=== PATIENT | female | born 2000 | race Caucasian/White ===

== ENCOUNTER 2022-09-22 12:08 | Day surgery (SDC) | payer BC ==
[2022-09-21 16:39] VITALS: BMI 18.6
[2022-09-21 16:50] LABS: Mean Corpuscular HGB CONC 33.3 g/dL (32.0-36.0); Mean Corpuscular Volume 96.3 fl (81.6-98.3); Mean Platelet Volume 10.2 fl (7.4-10.4); Platelet Count 247 10x3/uL (150-450); RBC Distribution Width 12.6 % (11.5-14.5); Red Blood Cell (RBC) Count 4.37 10x6/uL (3.90-5.03)
[2022-09-21 17:02] LABS: BHCG - Serum Negative (NEGATIVE); Pregs Control Background? CLEAR/WHITE (CLR/WHITE); Pregs Control Bar Appear? YES (CONTROL BAR)
[2022-09-22] MEDS ORDERED: Gabapentin 300 MG CAP ONE (12:17)
[2022-09-22] MEDS ORDERED: CeleCOXIB 100 MG CAP ONE (12:18)
[2022-09-22] MEDS ORDERED: Famotidine/PF 20 mg/2ml Vial ONE (12:19)
[2022-09-22] MEDS ORDERED: Midazolam HCl 2 mg/2 ml Vial ONE ×2 (13:40→15:32)
[2022-09-22] MEDS ORDERED: Bupivacaine HCl 0.5%/Epinephrine 1:200,000/PF 30 ml Vial ONE (13:40)
[2022-09-22] MEDS ORDERED: Dexamethasone 20 MG/5 ML VIAL ONE (13:43)
[2022-09-22] MEDS ORDERED: Fentanyl 100 MCG/2 ML VIAL ONE (13:43)
[2022-09-22] MEDS ORDERED: Ketorolac Tromethamine 30 MG/ML VIAL ONE (13:43)
[2022-09-22] MEDS ORDERED: PROPOFOL 20 ML ONE (13:43)
[2022-09-22] MEDS ORDERED: Glycopyrrolate 0.2 MG/ML 5 ML SYRINGE ONE (13:43)
[2022-09-22] MEDS ORDERED: Ondansetron PF 4 MG/2 ML Vial ONE (13:43)
[2022-09-22] MEDS ORDERED: Rocuronium Bromide 10 MG/ML (10ML VIAL) ONE (13:44)
[2022-09-22] MEDS ORDERED: Lidocaine 1% PF 5 ML VIAL ONE (13:44)
[2022-09-22] MEDS ORDERED: CEFAZOLIN 2 GM VIAL ONE (13:49)
[2022-09-22] MEDS ORDERED: ePHEDrine Sulfate 50 MG/10 ML VIAL ONE (14:17)
== END 2022-09-22 16:50 | disposition home or self-care (01) ==
LOC: CSHSDC 12:08
PROVIDERS: ATTEND Obstetrics & Gynecology
PROC: 0U5B4ZZ Destruction of Endometrium, Percutaneous Endoscopic Approach (ICD-10-PCS; principal; 2022-09-22)
DX: R10.2 Pelvic and perineal pain (principal); K59.09 Other constipation; N93.0 Postcoital and contact bleeding; N80.A63 Endometriosis of bilateral ureters, unspecified depth; G43.909 Migraine, unspecified, not intractable, without status migrainosus; D64.9 Anemia, unspecified; F41.9 Anxiety disorder, unspecified; F32.A Depression, unspecified; K21.9 Gastro-esophageal reflux disease without esophagitis; Z90.89 Acquired absence of other organs; Z88.0 Allergy status to penicillin; Z79.899 Other long term (current) drug therapy; Z98.890 Other specified postprocedural states
CPT/HCPCS: 36415; 84703; 85027; 86850; 86900; 86901; J1100; J1885; J2250; J2405; J2704; J3010; S0028